=== PATIENT | male | born 1935 | race Caucasian/White ===

== ENCOUNTER 2024-07-06 16:58 | Inpatient (IN) | payer MEDICARE, OTHER ==
[~2024-07-06] VITALS: Ht 180.3 cm; Wt 102.5 kg
[2024-07-06 17:01] VITALS: BP 130/62; PULSE 98; RESP 14; TEMP 96.6; O2SAT 94
[2024-07-06 17:48] LABS: APPEARANCE,URINE SLIGHTLY CLOUDY (CLEAR); BILIRUBIN,URINE NEGATIVE (NEGATIVE); BLOOD, URINE 3+ (NEGATIVE); COLOR,URINE YELLOW (YELLOW); LEUKOCYTE ESTERASE ,URINE 3+ (NEGATIVE); NITRITE, URINE NEGATIVE (NEGATIVE); PROTEIN,URINE TRACE (NEGATIVE); UGLUCOSE NEGATIVE (NEGATIVE)
[2024-07-06 17:49] LABS: BACTERIA,URINE 3+ /HPF (None Seen); RBC,URINE 11-20 (MOD) /HPF (0-5); SQUAMOUS EPITHELIAL CELL,UR 0-3 (FEW) /LPF (0-3 (FEW)); WBC,URINE 16-25 (MOD) /HPF (0-5)
[2024-07-06 17:50] LABS: MUCUS,URINE None Seen /LPF (None Seen)
[2024-07-06 17:56] LABS: AMPHETAMINE, URINE NEGATIVE ng/ml (NEG <=1000); BARBITURATE, URINE NEGATIVE ng/ml (NEG <=200); BENZODIAZEPINE, URINE NEGATIVE ng/mL (NEG <=200); CANNABINOID, URINE NEGATIVE ng/mL (NEG <=50); COCAINE, URINE NEGATIVE ng/mL (NEG <=300); OPIATE, URINE POSITIVE ng/mL (NEG <=2000); PHENCYCLIDINE SCREEN,URINE NEGATIVE ng/mL (NEG <=25)
[2024-07-06 18:10] LABS: BASOPHILS % (AUTO) 0.4 % (0.0-2.0); EOSINOPHILS # (AUTO) 0.3 K/uL (0-0.4); EOSINOPHILS % (AUTO) 2.8 % (0.0-4.0); HEMATOCRIT 28.2 % (36-52); HEMOGLOBIN 9.2 g/dL (12.0-18.0); LYMPHOCYTES # (AUTO) 1.6 K/uL (2.0-11.5); LYMPHOCYTES % (AUTO) 16.6 % (20.5-51.1); MEAN CORPUSCULAR HEMOGLOBIN 29 pg (27-31); MEAN CORPUSCULAR HGB CONC 33 g/dL (33-37); MEAN CORPUSCULAR VOLUME 89.1 fL (80-94); MONOCYTES # (AUTO) 0.9 K/uL (0.8-1.0); MONOCYTES % (AUTO) 9.7 % (1.7-9.3); NEUTROPHILS # (AUTO) 6.6 K/uL (1.8-7.7); NEUTROPHILS % (AUTO) 70.5 % (42.2-75.2); PLATELET COUNT (AUTO) 332 K/uL (140-450); RED BLOOD CELL COUNT(AUTO) 3.17 MIL/uL (4.20-6.10); RED CELL DISTRIBUTION WIDTH 15.9 % (11.6-13.7); WHITE BLOOD COUNT (AUTO) 9.4 K/uL (4.8-10.8)
[2024-07-06 18:19] LABS: INR 1.37 (0.8-1.2); PROTHROMBIN TIME 14.2 secs (10.8-13.4)
[2024-07-06 18:23] LABS: ALANINE AMINOTRANSFERASE 15 U/L (12-78); ALBUMIN 2.2 g/dL (3.4-5.0); ALKALINE PHOSPHATASE 113 U/L (50-136); ASPARTATE AMINOTRANSFERASE 22 U/L (15-37); BILIRUBIN,DIRECT 0.2 mg/dL (0.0-0.3); CREATINE KINASE, TOTAL 22 U/L (39-308); TOTAL BILIRUBIN 0.3 mg/dL (0.0-1.0); TOTAL PROTEIN, SERUM 6.8 g/dL (6.4-8.2)
[2024-07-06 18:25] LABS: ALCOHOL, BLOOD 10 mg/dL (<10); SALICYLATE < 2.8 mg/dL (2.8-20.0)
[2024-07-06 18:28] LABS: LACTIC ACID 0.7 mmol/L (0.4-2.0)
[2024-07-06 18:30] LABS: FLU A ANTIGEN negative (NEGATIVE); FLU B ANTIGEN NEGATIVE (NEGATIVE)
[2024-07-06 18:31] LABS: CALCIUM 8.1 mg/dL (8.5-10.1); CHLORIDE 81 mmol/L (98-107); CREATININE 0.4 mg/dL (0.6-1.3); GLUCOSE 154 mg/dL (74-106); UREA NITROGEN, BLOOD 16 mg/dL (7-18)
[2024-07-06 18:32] LABS: ANION GAP -0.6 (8-16)
[2024-07-06 18:35] LABS: SODIUM SERUM 123 mmol/L (136-145)
[2024-07-06 18:36] LABS: CARBON DIOXIDE 45.6 mmol/L (21-32)
[2024-07-06] MEDS ORDERED: PIPERACILLIN/TAZOBACTAM 3.375 GM VIAL IV ONE (18:58)
[2024-07-06] MEDS: PIPERACILLIN/TAZOBACTAM 3.375 GM in DEXTROSE 5% 50 ML IV ONE (19:02)
[2024-07-06] MEDS ORDERED: DILT360T13 PO (19:24)
[2024-07-06] MEDS ORDERED: CHLO50TA33 PO (19:24)
[2024-07-06] MEDS ORDERED: FURO40TA9 PO (19:24)
[2024-07-06] MEDS ORDERED: ALBU3SOL83 NEB (19:24)
[2024-07-06] MEDS ORDERED: MONTELUKAST (19:24)
[2024-07-06] MEDS ORDERED: INSU100I34 SUBQ (19:24)
[2024-07-06] MEDS ORDERED: CEFP200T21 PO (19:24)
[2024-07-06] MEDS ORDERED: TAMS0.4C97 PO (19:24)
[2024-07-06] MEDS ORDERED: FINA5TAB5 PO (19:24)
[2024-07-06] MEDS ORDERED: LOSA-272 PO (19:24)
[2024-07-06] MEDS ORDERED: ACET-9525 PO (19:24)
[2024-07-06] MEDS ORDERED: NACL 0.9% 1,000 ML IV SCH (19:35)
[2024-07-06] MEDS ORDERED: ONDANSETRON 4 MG/2 ML VIAL IVP PRN (19:35)
[2024-07-06] MEDS ORDERED: DEXTROSE 50% 50 ML SYR IVP PRN (19:40)
[2024-07-06] MEDS: KCL 20 MEQ IN 100 mL PREMIX 100 ML IV ONE (19:58)
[2024-07-06 21:00] VITALS: PULSE 75; PULSE 86; RESP 19; RESP 20; O2SAT 97; O2SAT 98
[2024-07-06] MEDS: BLOOD GLUCOSE MONITORING 1 DEV DEV FS SCH (21:33)
[2024-07-07] VITALS (13 sets, daily range): BP systolic 107–151; BP diastolic 54–69; PULSE 62–89; RESP 18–20; TEMP 96.7–98; O2SAT 94–100
[2024-07-07] MEDS: PIPERACILLIN/TAZOBACTAM 2.25 GM in DEXTROSE 5% 50 ML IV SCH (00:39)
[2024-07-07] MEDS: PIPERACILLIN/TAZOBACTAM 2.25 GM VIAL IV ONE (00:41)
[2024-07-07 05:55] LABS: BASOPHILS # (AUTO) 0.1 K/uL (0.00-0.22); BASOPHILS % (AUTO) 0.5 % (0.0-2.0); EOSINOPHILS # (AUTO) 0.3 K/uL (0-0.4); EOSINOPHILS % (AUTO) 3.2 % (0.0-4.0); HEMATOCRIT 30.4 % (36-52); HEMOGLOBIN 10.2 g/dL (12.0-18.0); LYMPHOCYTES # (AUTO) 1.9 K/uL (2.0-11.5); LYMPHOCYTES % (AUTO) 18.4 % (20.5-51.1); MEAN CORPUSCULAR HEMOGLOBIN 30 pg (27-31); MEAN CORPUSCULAR HGB CONC 34 g/dL (33-37); MEAN CORPUSCULAR VOLUME 87.6 fL (80-94); MONOCYTES # (AUTO) 0.9 K/uL (0.8-1.0); MONOCYTES % (AUTO) 9.4 % (1.7-9.3); NEUTROPHILS # (AUTO) 6.9 K/uL (1.8-7.7); NEUTROPHILS % (AUTO) 68.5 % (42.2-75.2); PLATELET COUNT (AUTO) 395 K/uL (140-450); RED BLOOD CELL COUNT(AUTO) 3.47 MIL/uL (4.20-6.10); RED CELL DISTRIBUTION WIDTH 15.5 % (11.6-13.7); WHITE BLOOD COUNT (AUTO) 10.1 K/uL (4.8-10.8)
[2024-07-07 06:05] LABS: ALANINE AMINOTRANSFERASE 15 U/L (12-78); ALBUMIN 2.3 g/dL (3.4-5.0); ALKALINE PHOSPHATASE 113 U/L (50-136); ASPARTATE AMINOTRANSFERASE 16 U/L (15-37); CALCIUM 8.6 mg/dL (8.5-10.1); CHLORIDE 82 mmol/L (98-107); CREATININE 0.4 mg/dL (0.6-1.3); GLUCOSE 126 mg/dL (74-106); MAGNESIUM 1.4 mg/dL (1.8-2.4); PHOSPHORUS 2.6 mg/dL (2.5-4.9); SODIUM SERUM 125 mmol/L (136-145); TOTAL BILIRUBIN 0.4 mg/dL (0.0-1.0); UREA NITROGEN, BLOOD 10 mg/dL (7-18)
[2024-07-07 06:11] LABS: ANION GAP -1.1 (8-16); CARBON DIOXIDE 46.9 mmol/L (21-32); POTASSIUM 2.8 mmol/L (3.5-5.1)
[2024-07-07] MEDS ORDERED: POTASSIUM CHLORIDE 40 MEQ, LIDOCAINE 1% 25 MG in NACL 0.9% 250 ML IV ONE (07:00)
[2024-07-07] MEDS: FINASTERIDE 5 MG TAB PO SCH (08:40)
[2024-07-07] MEDS: TAMSULOSIN 0.4 MG CAP PO SCH (08:41)
[2024-07-07] MEDS: LOSARTAN 50 MG TAB PO SCH (08:41)
[2024-07-07] MEDS: FUROSEMIDE 40 MG/4 ML VIAL IVP SCH (08:41)
[2024-07-07] MEDS: POTASSIUM CHLORIDE 40 MEQ, LIDOCAINE 1% 25 MG in NACL 0.9% 250 ML IV ONE (08:49)
[2024-07-07] MEDS ORDERED: ALBUTEROL SULFATE/IPRATROPIU 3 ML SOL IH PRN (11:30)
[2024-07-07] MEDS ORDERED: VANCOMYCIN PER PHARMACY MC PRN (11:45)
[2024-07-07] MEDS: VANCOMYCIN 1.25GM PREMIX 250 ML IV SCH (14:39)
[2024-07-07] MEDS ORDERED: THERAHONEY GEL 42.5 GM TP PRN (15:00)
[2024-07-07] MEDS ORDERED: Z-GUARD PASTE TP PRN (15:00)
[2024-07-08] VITALS (10 sets, daily range): BP systolic 99–131; BP diastolic 42–62; PULSE 63–94; RESP 18–20; TEMP 96.9–98.1; O2SAT 91–99
[2024-07-08] MEDS: APIXABAN 2.5 MG TAB PO SCH (00:10)
[2024-07-08] MEDS: Z-GUARD PASTE TP SCH (01:10)
[2024-07-08] MEDS: KCL 20 MEQ IN 100 mL PREMIX 200 ML IV PRN (01:12)
[2024-07-08 05:28] LABS: BASOPHILS # (AUTO) 0.1 K/uL (0.00-0.22); BASOPHILS % (AUTO) 0.9 % (0.0-2.0); EOSINOPHILS # (AUTO) 0.2 K/uL (0-0.4); EOSINOPHILS % (AUTO) 1.3 % (0.0-4.0); HEMATOCRIT 29.8 % (36-52); LYMPHOCYTES % (AUTO) 16.7 % (20.5-51.1); MEAN CORPUSCULAR HEMOGLOBIN 29 pg (27-31); MEAN CORPUSCULAR HGB CONC 34 g/dL (33-37); MEAN CORPUSCULAR VOLUME 87.3 fL (80-94); MONOCYTES # (AUTO) 1.4 K/uL (0.8-1.0); MONOCYTES % (AUTO) 11.9 % (1.7-9.3); NEUTROPHILS # (AUTO) 8.4 K/uL (1.8-7.7); NEUTROPHILS % (AUTO) 69.2 % (42.2-75.2); PLATELET COUNT (AUTO) 402 K/uL (140-450); RED BLOOD CELL COUNT(AUTO) 3.41 MIL/uL (4.20-6.10); RED CELL DISTRIBUTION WIDTH 15.4 % (11.6-13.7); WHITE BLOOD COUNT (AUTO) 12.1 K/uL (4.8-10.8)
[2024-07-08 05:50] LABS: ALANINE AMINOTRANSFERASE 13 U/L (12-78); ALKALINE PHOSPHATASE 103 U/L (50-136); ASPARTATE AMINOTRANSFERASE 18 U/L (15-37); CALCIUM 8.3 mg/dL (8.5-10.1); CHLORIDE 80 mmol/L (98-107); CREATININE 0.4 mg/dL (0.6-1.3); GLUCOSE 112 mg/dL (74-106); MAGNESIUM 1.3 mg/dL (1.8-2.4); SODIUM SERUM 125 mmol/L (136-145); TOTAL BILIRUBIN 0.5 mg/dL (0.0-1.0); TOTAL PROTEIN, SERUM 6.3 g/dL (6.4-8.2); UREA NITROGEN, BLOOD 11 mg/dL (7-18)
[2024-07-08 06:05] LABS: ANION GAP 1.6 (8-16); POTASSIUM 2.6 mmol/L (3.5-5.1)
[2024-07-08] MEDS: PANTOPRAZOLE 40 MG INJ VIAL IVP SCH (09:11)
[2024-07-08] MEDS: DILTIAZEM 120 MG CAPER PO SCH (09:12)
[2024-07-08] MEDS ORDERED: MAGNESIUM OXIDE 400 MG TAB PO PRN (10:45)
[2024-07-08] MEDS ORDERED: MAG SULF 2000 MG/WATER PREMIX 50 ML IV PRN (10:45)
[2024-07-08] MEDS ORDERED: KCL 20 MEQ IN 100 mL PREMIX 200 ML IV PRN (10:45)
[2024-07-08] MEDS: POTASSIUM CHLORIDE 10 MEQ TABER PO PRN (11:28)
[2024-07-08] MEDS: THERAHONEY GEL 42.5 GM TP SCH (13:35)
[2024-07-08] MEDS: PIPERACILLIN/TAZOBACTAM 2.25 GM in DEXTROSE 5% 50 ML IV SCH (14:08)
[2024-07-08] MEDS: MAG SULF 2000 MG/WATER PREMIX 50 ML IV PRN (15:06)
[2024-07-08] MEDS: INSULIN LISPRO SLIDING SCALE 100 UNITS/ML VIAL SUBQ PRN (16:35)
[2024-07-08] MEDS: POTASSIUM CHLORIDE 10 MEQ TABER PO SCH (20:37)
[2024-07-09] VITALS (7 sets, daily range): BP systolic 108–163; BP diastolic 45–55; PULSE 72–77; RESP 18–19; TEMP 96.7–98.2; O2SAT 95–99
[2024-07-09 06:51] LABS: BASOPHILS # (AUTO) 0.1 K/uL (0.00-0.22); BASOPHILS % (AUTO) 0.9 % (0.0-2.0); EOSINOPHILS # (AUTO) 0.3 K/uL (0-0.4); EOSINOPHILS % (AUTO) 3.5 % (0.0-4.0); HEMATOCRIT 25.5 % (36-52); HEMOGLOBIN 8.6 g/dL (12.0-18.0); LYMPHOCYTES # (AUTO) 2.2 K/uL (2.0-11.5); LYMPHOCYTES % (AUTO) 23.1 % (20.5-51.1); MEAN CORPUSCULAR HEMOGLOBIN 29 pg (27-31); MEAN CORPUSCULAR HGB CONC 34 g/dL (33-37); MEAN CORPUSCULAR VOLUME 87.1 fL (80-94); MONOCYTES % (AUTO) 10.7 % (1.7-9.3); NEUTROPHILS % (AUTO) 61.8 % (42.2-75.2); PLATELET COUNT (AUTO) 406 K/uL (140-450); RED BLOOD CELL COUNT(AUTO) 2.93 MIL/uL (4.20-6.10); RED CELL DISTRIBUTION WIDTH 15.8 % (11.6-13.7); WHITE BLOOD COUNT (AUTO) 9.6 K/uL (4.8-10.8)
[2024-07-09 07:09] LABS: ALANINE AMINOTRANSFERASE 16 U/L (12-78); ALKALINE PHOSPHATASE 93 U/L (50-136); ASPARTATE AMINOTRANSFERASE 16 U/L (15-37); CHLORIDE 84 mmol/L (98-107); CREATININE 0.6 mg/dL (0.6-1.3); GLUCOSE 98 mg/dL (74-106); MAGNESIUM 1.5 mg/dL (1.8-2.4); SODIUM SERUM 126 mmol/L (136-145); TOTAL BILIRUBIN 0.4 mg/dL (0.0-1.0); TOTAL PROTEIN, SERUM 5.9 g/dL (6.4-8.2); UREA NITROGEN, BLOOD 19 mg/dL (7-18)
[2024-07-09 07:42] LABS: POTASSIUM 2.9 mmol/L (3.5-5.1)
[2024-07-09 07:43] LABS: ANION GAP -4.5 (8-16); CARBON DIOXIDE 49.4 mmol/L (21-32)
[2024-07-09] MEDS: METOPROLOL SUCCINATE 50 MG TABER PO SCH (09:09)
[2024-07-09] MEDS: KCL 20 MEQ IN 100 mL PREMIX 200 ML IV SCH (10:17)
[2024-07-10 04:00] VITALS: BP 134/53; PULSE 66; RESP 18; TEMP 97.3; O2SAT 96
[2024-07-10 05:36] VITALS: O2SAT 98
[2024-07-10 06:43] LABS: BASOPHILS # (AUTO) 0.1 K/uL (0.00-0.22); BASOPHILS % (AUTO) 0.8 % (0.0-2.0); EOSINOPHILS # (AUTO) 0.4 K/uL (0-0.4); EOSINOPHILS % (AUTO) 3.5 % (0.0-4.0); HEMATOCRIT 27.1 % (36-52); HEMOGLOBIN 9.2 g/dL (12.0-18.0); LYMPHOCYTES # (AUTO) 2.4 K/uL (2.0-11.5); LYMPHOCYTES % (AUTO) 21.9 % (20.5-51.1); MEAN CORPUSCULAR HEMOGLOBIN 30 pg (27-31); MEAN CORPUSCULAR HGB CONC 34 g/dL (33-37); MEAN CORPUSCULAR VOLUME 86.9 fL (80-94); MONOCYTES # (AUTO) 1.1 K/uL (0.8-1.0); MONOCYTES % (AUTO) 10.4 % (1.7-9.3); NEUTROPHILS # (AUTO) 6.9 K/uL (1.8-7.7); NEUTROPHILS % (AUTO) 63.4 % (42.2-75.2); PLATELET COUNT (AUTO) 372 K/uL (140-450); RED BLOOD CELL COUNT(AUTO) 3.12 MIL/uL (4.20-6.10); RED CELL DISTRIBUTION WIDTH 15.5 % (11.6-13.7); WHITE BLOOD COUNT (AUTO) 10.9 K/uL (4.8-10.8)
[2024-07-10 07:32] LABS: ALANINE AMINOTRANSFERASE 15 U/L (12-78); ALBUMIN 2.1 g/dL (3.4-5.0); ALKALINE PHOSPHATASE 95 U/L (50-136); ASPARTATE AMINOTRANSFERASE 16 U/L (15-37); CALCIUM 8.1 mg/dL (8.5-10.1); CHLORIDE 84 mmol/L (98-107); CREATININE 0.5 mg/dL (0.6-1.3); GLUCOSE 125 mg/dL (74-106); MAGNESIUM 1.5 mg/dL (1.8-2.4); PHOSPHORUS 3.3 mg/dL (2.5-4.9); POTASSIUM 3.1 mmol/L (3.5-5.1); SODIUM SERUM 126 mmol/L (136-145); TOTAL BILIRUBIN 0.4 mg/dL (0.0-1.0); TOTAL PROTEIN, SERUM 6.2 g/dL (6.4-8.2); UREA NITROGEN, BLOOD 28 mg/dL (7-18)
[2024-07-10 07:56] LABS: CARBON DIOXIDE 50.1 mmol/L (21-32)
[2024-07-10 07:57] VITALS: O2SAT 97
[2024-07-10 08:00] VITALS: BP 90/46; PULSE 66; PULSE 69; RESP 18; TEMP 98.6; O2SAT 98
[2024-07-10] MEDS: ACETAMINOPHEN 325 MG TAB PO SCH (17:15)
[2024-07-10 17:24] LABS: BLOOD GAS BASE EXCESS 18.2 mmol/L (-2.0-3.0); BLOOD GAS HCO3 42.6 mmol/L (21.0-28.0); BLOOD GAS PCO2 49.8 mmHg (35.0-48.0); BLOOD GAS PO2 107.5 mmHg (83.0-108.0)
[2024-07-10 17:25] LABS: BLOOD GAS O2 SAT% 98.5 % (94.0-98.0); FRACTIONATED INSPIRED OXYGEN 0.28 % (0.21-100.00)
[2024-07-10 20:00] VITALS: BP 92/40; PULSE 91; RESP 18; RESP 19; TEMP 97.3; O2SAT 98
[2024-07-10 20:02] VITALS: O2SAT 98
[2024-07-11] VITALS (9 sets, daily range): BP systolic 110–119; BP diastolic 43–57; PULSE 81–93; RESP 18–20; TEMP 97.1–97.4; O2SAT 82–100
[2024-07-11 06:53] LABS: BASOPHILS # (AUTO) 0.1 K/uL (0.00-0.22); BASOPHILS % (AUTO) 1.3 % (0.0-2.0); EOSINOPHILS # (AUTO) 0.4 K/uL (0-0.4); EOSINOPHILS % (AUTO) 3.8 % (0.0-4.0); HEMATOCRIT 24.9 % (36-52); HEMOGLOBIN 8.4 g/dL (12.0-18.0); LYMPHOCYTES # (AUTO) 2.8 K/uL (2.0-11.5); LYMPHOCYTES % (AUTO) 25.3 % (20.5-51.1); MEAN CORPUSCULAR HEMOGLOBIN 30 pg (27-31); MEAN CORPUSCULAR HGB CONC 34 g/dL (33-37); MEAN CORPUSCULAR VOLUME 87.8 fL (80-94); MONOCYTES # (AUTO) 1.2 K/uL (0.8-1.0); MONOCYTES % (AUTO) 10.8 % (1.7-9.3); NEUTROPHILS # (AUTO) 6.4 K/uL (1.8-7.7); NEUTROPHILS % (AUTO) 58.8 % (42.2-75.2); PLATELET COUNT (AUTO) 368 K/uL (140-450); RED BLOOD CELL COUNT(AUTO) 2.84 MIL/uL (4.20-6.10); RED CELL DISTRIBUTION WIDTH 15.7 % (11.6-13.7); WHITE BLOOD COUNT (AUTO) 10.9 K/uL (4.8-10.8)
[2024-07-11 07:25] LABS: ALANINE AMINOTRANSFERASE 14 U/L (12-78); ALBUMIN 2.1 g/dL (3.4-5.0); ALKALINE PHOSPHATASE 97 U/L (50-136); ANION GAP 3.4 (8-16); ASPARTATE AMINOTRANSFERASE 16 U/L (15-37); CALCIUM 8.3 mg/dL (8.5-10.1); CHLORIDE 85 mmol/L (98-107); CREATININE 0.5 mg/dL (0.6-1.3); GLUCOSE 124 mg/dL (74-106); MAGNESIUM 1.4 mg/dL (1.8-2.4); PHOSPHORUS 3.3 mg/dL (2.5-4.9); POTASSIUM 3.2 mmol/L (3.5-5.1); SODIUM SERUM 129 mmol/L (136-145); TOTAL BILIRUBIN 0.3 mg/dL (0.0-1.0); TOTAL PROTEIN, SERUM 6.2 g/dL (6.4-8.2); UREA NITROGEN, BLOOD 31 mg/dL (7-18)
[2024-07-11 07:29] LABS: CARBON DIOXIDE 43.8 mmol/L (21-32)
[2024-07-12 04:00] VITALS: BP 122/56; PULSE 84; RESP 19; TEMP 97.4; O2SAT 99
[2024-07-12 06:11] LABS: ALANINE AMINOTRANSFERASE 17 U/L (12-78); ALBUMIN 2.1 g/dL (3.4-5.0); ALKALINE PHOSPHATASE 93 U/L (50-136); ANION GAP 0.9 (8-16); ASPARTATE AMINOTRANSFERASE 16 U/L (15-37); CHLORIDE 88 mmol/L (98-107); CREATININE 0.4 mg/dL (0.6-1.3); GLUCOSE 117 mg/dL (74-106); MAGNESIUM 1.4 mg/dL (1.8-2.4); PHOSPHORUS 3.1 mg/dL (2.5-4.9); POTASSIUM 3.5 mmol/L (3.5-5.1); SODIUM SERUM 130 mmol/L (136-145); TOTAL BILIRUBIN 0.3 mg/dL (0.0-1.0); TOTAL PROTEIN, SERUM 6.2 g/dL (6.4-8.2); UREA NITROGEN, BLOOD 25 mg/dL (7-18)
[2024-07-12 06:22] LABS: BASOPHILS # (AUTO) 0.1 K/uL (0.00-0.22); BASOPHILS % (AUTO) 1.1 % (0.0-2.0); EOSINOPHILS # (AUTO) 0.6 K/uL (0-0.4); HEMATOCRIT 25.7 % (36-52); HEMOGLOBIN 8.5 g/dL (12.0-18.0); LYMPHOCYTES # (AUTO) 2.2 K/uL (2.0-11.5); LYMPHOCYTES % (AUTO) 21.8 % (20.5-51.1); MEAN CORPUSCULAR HEMOGLOBIN 29 pg (27-31); MEAN CORPUSCULAR HGB CONC 33 g/dL (33-37); MEAN CORPUSCULAR VOLUME 87.6 fL (80-94); MONOCYTES # (AUTO) 1.1 K/uL (0.8-1.0); MONOCYTES % (AUTO) 10.3 % (1.7-9.3); NEUTROPHILS # (AUTO) 6.2 K/uL (1.8-7.7); NEUTROPHILS % (AUTO) 60.8 % (42.2-75.2); PLATELET COUNT (AUTO) 349 K/uL (140-450); RED BLOOD CELL COUNT(AUTO) 2.93 MIL/uL (4.20-6.10); RED CELL DISTRIBUTION WIDTH 15.7 % (11.6-13.7); WHITE BLOOD COUNT (AUTO) 10.2 K/uL (4.8-10.8)
[2024-07-12 06:40] LABS: CARBON DIOXIDE 44.6 mmol/L (21-32)
[2024-07-12 08:00] VITALS: BP 102/47; PULSE 91; RESP 20; TEMP 97.8; O2SAT 100; O2SAT 96
[2024-07-12] MEDS ORDERED: LEVO-481 PO (09:40)
[2024-07-12] MEDS ORDERED: APIX5TAB PO (09:40)
[2024-07-12] MEDS ORDERED: METO25TE2 PO (09:50)
[2024-07-12 10:00] VITALS: BP 102/47; PULSE 96; RESP 20; TEMP 97.8
== END 2024-07-12 13:00 | disposition home or self-care (01) | DRG 871 ==
LOC: MED 16:58 → MTU 19:35 → MED 19:38 → MTU 19:38
PROVIDERS: ADMIT Student in an Organized Health Care Education/Training Program; ATTEND Student in an Organized Health Care Education/Training Program
DX: A41.9 Sepsis, unspecified organism (principal); E43 Unspecified severe protein-calorie malnutrition; L89.153 Pressure ulcer of sacral region, stage 3; G93.41 Metabolic encephalopathy; I50.23 Acute on chronic systolic (congestive) heart failure; I42.9 Cardiomyopathy, unspecified; N39.0 Urinary tract infection, site not specified; E87.1 Hypo-osmolality and hyponatremia; I11.0 Hypertensive heart disease with heart failure; J44.9 Chronic obstructive pulmonary disease, unspecified; E11.9 Type 2 diabetes mellitus without complications; D64.9 Anemia, unspecified; Z68.31 Body mass index [BMI] 31.0-31.9, adult; E87.6 Hypokalemia; Z20.822 Contact with and (suspected) exposure to COVID-19; I48.91 Unspecified atrial fibrillation; E83.42 Hypomagnesemia; N40.0 Benign prostatic hyperplasia without lower urinary tract symptoms
CPT/HCPCS: 36415; 36600; 70450; 71045; 80048; 80053; 80076; 80202; 80305; 81001; 82550; 82803; 82948; 83605; 83735; 83880; 84100; 84484; 85025; 85610; 87040; 87070; 87075; 87081; 87086; 87186; 87205; 92526; 93005; 96361; 96365; 97110; 97112; 97530; 99291; G0480; G0482; J1815; J1940; J2003; J2470; J2543; J3372; J3475; J3480; J7030; J7060; Q0092